=== PATIENT | female | born 1980 | race Caucasian/White ===

== ENCOUNTER 2025-01-09 01:14 | Inpatient (IN) | payer MEDICAID, SELFPAY ==
[2025-01-09] VITALS (15 sets, daily range): BP systolic 90–134; BP diastolic 42–90; PULSE 82–102; RESP 12–25; TEMP 36.3–37.2; O2SAT 4–96; BMI 39.6
--- NOTE | ~2025-01-09 | XR_ITS ---
EXAMINATION: XR ABDOMEN KUB CLINICAL INDICATION: constipation not relieved with bowel meds 4.5 days COMPARISON: CT from 01/09/2025 TECHNIQUE: AP view of the abdomen. FINDINGS: There is moderate small and large bowel gas. Metallic wires are visible in the left abdomen and also right of midline in the lower abdomen. XR/XR KUB IMPRESSION: There is a nonspecific bowel gas pattern with gas seen throughout small and large bowel. Electronically signed by: Arpan Mora MD 01/12/2025 11:55 AM EDT
--- NOTE | ~2025-01-09 | XR_ITS ---
CLINICAL HISTORY: ng tube placement 1 view chest x-ray Comparison: None provided Findings: Low lung volumes. Vascular crowding and subsegmental atelectasis. No consolidation or effusion. Heart size is normal. No acute fracture. IMPRESSION: Tip of NG tube in the body of stomach. This document has been electronically signed by: Helga Fox MD on 01/09/2025 04:06:10
--- NOTE | ~2025-01-09 | CT_ITS ---
CLINICAL HISTORY: abdominal pain CT ABDOMEN AND PELVIS WITH CONTRAST COMPARISON: None provided. FINDINGS: CTA chest will be reported separately. Examination is limited due to motion artifact. No evidence of a small-bowel obstruction or free air. A large amount of colonic stool is noted. There is tortuosity/redundancy involving portions of the colon. A portion of the distal transverse colon appears mildly thick-walled, for example seen on coronal image 52 and axial image 252. This might be due to underdistention. Appendix is not visualized. Postsurgical changes are noted in the abdomen. Small hiatal hernia is noted. Stomach is significantly underdistended which precludes accurate assessment. Fatty liver is noted. No focal liver lesion. Liver is enlarged and measures 20.8 cm on coronal image 67. There is mild prominence of the intrahepatic bile ducts without focal lesion. No visible gallstone. No pericholecystic inflammation. Common bile duct is dilated measuring 7-8 mm in caliber on coronal image 62. Pancreas is unremarkable. No CT evidence of acute pancreatitis. Spleen and adrenal glands are unremarkable. Bilateral renal cysts are noted. There also subcentimeter low-attenuation lesions in the left kidney which are too small to characterize. No hydronephrosis or obstructing stone. Urinary bladder is underdistended. There is a small amount of pelvic free fluid. No loculated fluid collection. Calcific plaque is noted in the abdominal aorta. No evidence of an abdominal aortic aneurysm or dissection. No lymphadenopathy. No evidence of a bowel containing hernia. Bone windows demonstrate no acute abnormalities. IMPRESSION: 1. No evidence of a bowel obstruction or free air. A large amount of colonic stool is noted. 2. A portion of the distal transverse colon appears mildly thick-walled. This might be due to underdistention. 3. Small hiatal hernia. 4. Fatty and enlarged liver. 5. Common bile duct is dilated measuring 7-8 mm in caliber. There is mild prominence of the intrahepatic bile ducts. No visible gallstone, within the limits of a CT scan. Correlation with liver function tests is advised. Follow-up nonurgent MRCP correlation can be considered. 6. Small amount of pelvic free fluid. No loculated fluid collection. 7. Additional findings are detailed above. This document has been electronically signed by: Adrien Shields M.D. on 01/09/2025 04:52:05
--- NOTE | ~2025-01-09 | CT_ITS ---
CLINICAL HISTORY: sob CTA CHEST WITH CONTRAST AND 3D POST PROCESSING COMPARISON: None provided. FINDINGS: Sagittal and coronal MIP 3D reconstruction images were performed. CT abdomen/pelvis will be reported separately. Exam is significantly limited due to motion/streak artifact. No definitive evidence of a pulmonary embolism. Cardiomegaly is present. Thoracic aorta is partially obscured by motion/streak artifact but is normal in caliber without evidence of an aneurysm. No definite dissection. Small hiatal hernia is noted. No evidence of a pneumothorax or pneumomediastinum. Multifocal atelectasis is noted in the bilateral lower lungs. There is mild right upper lobe atelectasis. No consolidation. No pleural effusion. No lymphadenopathy. 6-7 mm right thyroid lobe nodule is suspected on axial image 13. Bone windows demonstrate no acute abnormalities. IMPRESSION: 1. Limited exam. No definitive evidence of a pulmonary embolism. No evidence of a thoracic aortic aneurysm. No definite dissection. 2. Cardiomegaly. 3. Small hiatal hernia. 4. Multifocal atelectatic changes are noted. 5. Additional findings are detailed above. This document has been electronically signed by: Adrien Shields M.D. on 01/09/2025 05:00:59
--- NOTE | ~2025-01-09 | US_ITS ---
CLINICAL HISTORY: Rule out gallstones common bile duct evaluation US abdomen limited with color Doppler Comparison: CT/SR - CT ABDOMEN PELVIS W IV CON - 01/09/25 02:49 EDT Findings: Borderline gallbladder hydrops. Layering gallstones. No gallbladder wall thickening. No pericholecystic fluid. Positive sonographic Sheriff's sign. Common bile duct 6 mm. Impression: 1. Borderline gallbladder hydrops. Layering gallstones. Positive sonographic sheriff's sign. 2. Common bile duct upper limits of normal in diameter. This document has been electronically signed by: Ming Curry MD on 01/10/2025 18:11:22
[2025-01-09 01:42] LABS: MANUAL DIFF FLAG NO
[2025-01-09 01:43] LABS: Hematocrit 46.5 % (37.0-47.0); Hemoglobin 15.6 g/dl (12.0-16.0); Imm Gran Abs Auto 0.13 X10*3/uL (0.00-0.03); Imm Gran Pct Auto 1.0 % (0.0-0.4); Lymphocytes Absolute Auto 3.9 X10*3/uL (1.2-4.9); Mean Corpuscular HGB Conc 33.5 g/dl (31.0-35.0); Mean Corpuscular Hemoglobin 28.2 pg (27.0-33.0); Mean Corpuscular Volume 83.9 fL (80.0-98.0); NRBC Abs Auto 0.000 X10*3/uL (0.0-0.012); NRBC Pct Auto 0.0 /100WBC (0.0-0.2); Platelet Count 338 X10*3/uL (160-400); Red Blood Count 5.54 X10*6/uL (4.20-5.50); White Blood Count 13.3 X10*3/uL (4.8-10.8)
--- NOTE | 2025-01-09 02:09 | ED_ITS ---
[facility] - General Adult General Chief complaint: Abdominal Pain Stated complaint: LOWER ABDOMINAL PAIN Time Seen by Provider: 01/09/25 02:09 Source: patient Mode of arrival: ambulatory Limitations: no limitations History of Present Illness ED Provider: Dr. Forrester [facility] narrative: 44-year-old female history of opioid use disorder on methadone presented hospital today for nausea vomiting for the past 3 days. Patient is complaining of diffuse abdominal pain as well. Patient has been taking laxative without any alleviation of her constipation. History is limited as the patient appears to be acutely ill and pale and diaphoretic. Related Data Allergies Allergy/AdvReac Type Severity Reaction Status Date / Time No Known Allergies Allergy Verified 01/09/25 01:35 Review of Systems 2 Review of Systems: Pertinent review of systems as mentioned in HPI. All other system otherwise negative. [facility] Past Medical History [facility] Narrative: Medical history as mentioned in HPI Social History Social History Smoked in Last 30 Days: Yes Use of substances other than those prescribed or required for medical reasons: No Advance Directives: No Advance Directives Information Provided: Yes Do you have a plan to hurt others: No Plan Physical Exam ED Exam Exam: General: Pale diaphoretic, appears to be nauseous Head: Normacephalic, atraumatic ENT: oral mucosa moist, neck supple, no tracheal deviation Cardiovascular: Tachycardic rate, regular rhythm, no murmurs, rubbing, gallops Respiratory: CTAB, no wheeze, rales, rhonchi Gastrointestinal: Diffuse abdominal tenderness and distention appreciated on exam Neurological: Awake and alert, no facial droop noted Skin: Warm and dry Psychiatric: Appropriate mood and thoughts Vital Signs: Vital Signs - 24 hr 01/09/25 01:31 01/09/25 02:30 01/09/25 03:22 Temperature 98.4 F 97.5 F Pulse Rate 88 102 H 98 Respiratory Rate 20 25 H 13 Blood Pressure 102/57 L 90/42 L 134/63 Pulse Oximetry 94 92 95 Oxygen Delivery Method Nasal Cannula Nasal Cannula Nasal Cannula Oxygen Flow Rate 4 4 01/09/25 03:51 01/09/25 04:15 01/09/25 04:49 Temperature 97.4 F 97.5 F 97.7 F Pulse Rate 100 95 94 Respiratory Rate 14 16 16 Blood Pressure 110/49 L 107/52 L 103/61 Pulse Oximetry 94 96 96 Oxygen Delivery Method Nasal Cannula Nasal Cannula Nasal Cannula Oxygen Flow Rate 4 4 4 BMI result Body Mass Index 39.6 Medications Administered Discontinued Medications Generic Name Dose Route Start Last Admin Trade Name Freq PRN Reason Stop Dose Admin Sodium Chloride 1,000 mls @ 999 mls/hr 01/09/25 02:15 01/09/25 04:13 Ns IV 01/09/25 03:15 Infused .Q1H1M VALERIY Infusion Piperacillin Sod/Tazobactam 100 mls @ 200 mls/hr 01/09/25 02:41 01/09/25 04:13 Sod 4.5 gm/ Sodium Chloride IV 01/09/25 03:10 Infused ONCE ONE Infusion Sodium Chloride 1,000 mls @ 999 mls/hr 01/09/25 04:15 01/09/25 04:13 Ns IV 01/09/25 05:15 Infused .Q1H1M VALERIY Infusion Lactated Ringer's 1,000 mls @ 999 mls/hr 01/09/25 04:30 01/09/25 05:27 Lr IV 01/09/25 05:30 Infused .Q1H1M VALERIY Infusion Iohexol 85 ml 01/09/25 03:54 01/09/25 03:55 Iohexol 350 Mg/Ml 100 Ml Infus..Btl IV 01/09/25 03:55 85 ml ONCE ONE Administration Ketorolac Tromethamine 15 mg 01/09/25 04:51 01/09/25 05:08 Ketorolac Tromethamine 15 Mg/Ml Vial IVPUSH 01/09/25 04:52 15 mg ONCE ONE Administration Ondansetron HCl 4 mg 01/09/25 01:43 01/09/25 01:52 Ondansetron Hcl 4 Mg/2 Ml Vial IVPUSH 01/09/25 01:44 4 mg ONCE ONE Administration Ondansetron HCl 4 mg 01/09/25 02:12 01/09/25 02:27 Ondansetron Hcl 4 Mg/2 Ml Vial IVPUSH 01/09/25 02:13 4 mg ONCE ONE Administration Medical Decision Making Medical Decision Making MDM Narrative: This is a 44-year-old female presented hospital today for evaluation of nausea vomiting diarrhea and diffuse abdominal pain. Tylenol workup performed has leukocytosis 13.3. Elevated lactic acid at 3.9. Indicated severe dehydration. However due to leukocytosis and elevated lactic acid. Sepsis was called for the patient. IV Zosyn was started. Blood culture obtained as well. Patient has received a total was a 3 L IV fluid. Repeat lactic acid is 3.4. Blood pressure has improved at this time. Initial blood pressure was in the 80 systolic. She was hypotensive due to severe dehydration. CTA of the chest shows cardiomegaly, no PE, small hiatal hernia. Patient's CT abdomen and pelvis did not show any signs of bowel obstruction, there is a large amount of colonic stool. Patient also has enlarged CBD. Patient appears to be much more comfortable on reassessment. Her color has returned. Blood pressure remained stable at this time. We will plan to admit the patient to the hospital for further management of her dehydration. And possible evaluation of her enlarged CBD. Differential Diagnosis Differential Diagnoses: The differential diagnosis associated with the presentation includes Cholecystitis, small-bowel obstruction, constipation, perforated bowel Consult Healthcare Provider Management of the patient was discussed with: Hospitalist Lab Data MDM Lab Attestation statement: I reviewed the patient's lab results. 01/09/25 01:35 01/09/25 01:35 Labs: Lab Results 01/09/25 01/09/25 01/09/25 Range/Units 01:35 02:46 05:08 WBC 13.3 H (4.8-10.8) X10*3/uL RBC 5.54 H (4.20-5.50) X10*6/uL Hgb 15.6 (12.0-16.0) g/dl Hct 46.5 (37.0-47.0) % MCV 83.9 (80.0-98.0) fL MCH 28.2 (27.0-33.0) pg MCHC 33.5 (31.0-35.0) g/dl RDW 13.0 (11.0-16.0) % Plt Count 338 (160-400) X10*3/uL MPV 9.7 (9.4-12.3) fL Immature Gran % (Auto) 1.0 H (0.0-0.4) % Neut % (Auto) 67.2 (45-73) % Lymph % (Auto) 29.0 (20-40) % [place] % (Auto) 1.7 L (2-11) % Eos % (Auto) 0.9 (0-4) % Baso % (Auto) 0.2 (0-2) % Lymph # (Auto) 3.9 (1.2-4.9) X10*3/uL [place] # (Auto) 0.2 (0.1-1.2) X10*3/uL Eos # (Auto) 0.1 (0.0-0.4) X10*3/uL Baso # (Auto) 0.0 (0.0-0.2) X10*3/uL Abs Immat Gran (auto) 0.13 H (0.00-0.03) X10*3/uL Absolute Neuts (auto) 9.0 H (2.0-8.3) x10*3/uL Absolute Nucleated RBC 0.000 (0.0-0.012) X10*3/uL Nucleated RBC % (auto) 0.0 (0.0-0.2) /100WBC Sodium 141 (135-145) mmol/L Potassium 3.8 (3.3-5.1) mmol/L Chloride 105 (96-108) mmol/L Carbon Dioxide 22 (22-29) mmol/L Anion Gap 18 (12-20) BUN 16 (9-16) mg/dL Creatinine 1.12 (0.5-1.4) mg/dL Estim Creat Clear Calc 76.7 Estimated GFR 52 Random Glucose 198 H (60-115) mg/dL Lactic Acid 3.9 H* (0.5-2.0) mmol/L Lactic Acid F/U @ 2Hr 3.4 H* (0.5-2.0) mmol/L Calcium 10.8 H (8.4-10.2) mg/dL Total Bilirubin 0.3 (0.0-1.0) mg/dL AST 31 (5-31) U/L ALT 50 H (0-31) U/L Alkaline Phosphatase 142 H (39-117) U/L Total Protein 7.5 (6.5-8.0) g/dL Albumin 4.6 (3.5-5.0) g/dL Lipase 197 H (8-78) U/L Independent Interpretation I performed an independent interpretation of an: CT Scan Radiology Impression Discussion of test interpretation with radiology: I have reviewed the radiologist's reading. Chronic Conditions Opioid dependence Critical Care Time Critical Care Time Critical Care Time: Yes Total Critical Care Time: 50 Attestation: Time is exclusive of separately billable procedures. Time includes: direct patient care, patient reassessment, coordination of patient care, interpretation of data (laboratory data, pulse oximetry, arterial blood gases and chest xrays), review of patient's medical records, medical consultation and documentation of patient care. Procedures excluded from critical care time: central intravenous line placement and electrocardiography. Discharge Plan Discharge Clinical Impression: Dehydration, severe, Constipation, Common bile duct dilatation Patient Disposition: Admitted As Inpatient Print Language: Turkish
[2025-01-09 02:12] LABS: Alanine Aminotransferase 50 U/L (0-31); Albumin Level 4.6 g/dL (3.5-5.0); Alkaline Phosphatase 142 U/L (39-117); Anion Gap 18 (12-20); Aspartate Amino Transferase 31 U/L (5-31); Blood Urea Nitrogen 16 mg/dL (9-16); Calcium 10.8 mg/dL (8.4-10.2); Carbon Dioxide 22 mmol/L (22-29); Chloride 105 mmol/L (96-108); Creatinine Clr Calc Pharmacy 76.7; Estimated Glomerular Filt Rate 52; Lipase 197 U/L (8-78); Potassium 3.8 mmol/L (3.3-5.1); Sodium 141 mmol/L (135-145); Total Protein 7.5 g/dL (6.5-8.0)
[2025-01-09] MEDS: iohexoL 350 MG/ML 100 ML INFUS..BTL 85 ML IV (03:55)
--- NOTE | 2025-01-09 04:11 | PC.NURSE ---
NG tube placed and confirmed, Medicted per mar, second line placed by ultra sound,
[2025-01-09] MEDS: Lactated Ringers 1,000 ML 999 ML IV (04:23)
[2025-01-09 04:54] LABS: Reflex Lactate? Lactic Acid Added
--- NOTE | 2025-01-09 04:58 | MHC.EDTECH ---
patient belongings completed. patient noted to have large sum of money in which she agreed to have locked up in the safe with security. $[id number] in plata verified with security and patient , all forms signed with security and money brought to safe and locked up. Form with all information and retrieval information in patients chart located behind the medical secretary.
[2025-01-09 05:33] LABS: ~Lactic Acid-LAB USE ONLY 3.4 mmol/L (0.5-2.0)
--- NOTE | 2025-01-09 05:36 | PC.NURSE ---
pt repeat lactic still remain elevated, Dr. rich aware.
--- NOTE | 2025-01-09 05:42 | P.HPHOSP_ITS ---
History of Present Illness Date of Service: 01/09/25 Attending physician on admission: Arti Mathew Chief Complaint: Vomiting Kamini Ash is a 44 years old woman with a past medical history significant for opiates use disorder on methadone, essential hypertension, depression and obesity presents to the emergency department complaining of nausea and vomiting that started tonight associated with left lower quadrant and constipation over the last 4 days. She to 6 laxative at home without results. She denied chest pain, cough or shortness on breath. She reported chills but no fever. She denied pain with urination but has been urinating less frequently. Abdominal surgical history significant for hysterectomy with bilateral salpingo- oophorectomy due to abnormal vaginal bleeding. Smoke tobacco 1 pack per day, denies alcohol abuse or current illicit drug use. She has been clean for 3 years. In the ED, in the ED, she was found to have soft blood pressure of 90/42. Last BP is 120/62. She was having mild degree of tachycardia and tachypnea. Her oxygen saturation is normal. She was placed on supplemental oxygen via nasal cannula and currently on 4 L/min. Blood workup showed leukocytosis of 13.3. Hemoglobin is 15.6 and platelets. There are no electrolyte imbalances. Glucose 196. There is lactic acidosis of 3.9 then 3.4. ALT and alk-phos are elevated; but normal bilirubin and AST. Lipase 197. Abdominal pelvis CT scan showed no evidence of bowel obstruction or free air but a large amount of colonic stool was noted. Common bile duct was found to be dilated measuring 7-8 mm in caliber, mild prominence of intrahepatic bilaterally ducts without visible gallstone. Chest CTA showed no definitive evidence of pulmonary embolism. Itchy did showed cardiomegaly, small hiatal hernia, multifocal atelectatic changes noted. In the ED, Zofran 8 mg IV total, Zosyn 4.5 g IV, morphine 4 mg IV, LR 2 L bolus, NS 1 L bolus 50 mg IV Review of Systems 2 Review of Systems: All 12 systems were reviewed and normal except as noted in HPI. PENDING SALE TO [facility] Medical History (Updated 01/09/25 @ 06:46 by Arti Mathew MD) Opioid use disorder Essential hypertension Obesity Social History Smoked in Last 30 Days: Yes Use of substances other than those prescribed or required for medical reasons: No Advance Directives: No Advance Directives Information Provided: Yes Do you have a plan to hurt others: No Plan Meds Allergies Allergy/AdvReac Type Severity Reaction Status Date / Time No Known Allergies Allergy Verified 01/09/25 01:35 Physical Exam 2 Vital Signs and Narrative: Vital Signs: Last Vital Signs Temp 97.7 F 01/09/25 04:49 Pulse 94 01/09/25 04:49 Resp 16 01/09/25 04:49 BP 103/61 01/09/25 04:49 Pulse Ox 96 01/09/25 04:49 O2 Del Method Nasal Cannula 01/09/25 04:49 O2 Flow Rate 4 01/09/25 04:49 Oxygen Flow Rate 4 01/09/25 01:31 BMI result Body Mass Index 39.6 Constitutional - Awake and Alert, No apparent distress. Pleasant. Cooperative. Nasal cannula in place. HEENT - PER, EOMI. Dry oral mucosa. Heart - S1S2, RRR, no murmurs Lungs- Normal lung expansion, Normal respiratory effort, No respiratory distress. No tachypnea. Decreased breath sound at bases. No wheezing, rhonchi or crackles. Abdomen - nondistended, left lower quadrant tenderness to palpation without rebound or guarding. Increased bowel sounds. - negative CVA tenderness Extremities - no calf tenderness bilaterally, no swelling Musculoskeletal - Normal inspection, normal ROM Skin - Warm/Dry Neurological - Alert & oriented x3. Moving all extremities spontaneously. Psychological - Appropriate affect Results Labs 01/09/25 01:35 01/09/25 01:35 Labs: Laboratory Results - last 24 hr 01/09/25 01/09/25 01/09/25 01:35 02:46 05:08 MCV 83.9 MCH 28.2 MCHC 33.5 RDW 13.0 Plt Count 338 MPV 9.7 Immature Gran % (Auto) 1.0 H Neut % (Auto) 67.2 Lymph % (Auto) 29.0 [place] % (Auto) 1.7 L Eos % (Auto) 0.9 Baso % (Auto) 0.2 Lymph # (Auto) 3.9 [place] # (Auto) 0.2 Eos # (Auto) 0.1 Baso # (Auto) 0.0 Abs Immat Gran (auto) 0.13 H Absolute Neuts (auto) 9.0 H Absolute Nucleated RBC 0.000 Nucleated RBC % (auto) 0.0 Anion Gap 18 Estim Creat Clear Calc 76.7 Estimated GFR 52 Random Glucose 198 H Lactic Acid 3.9 H* Lactic Acid F/U @ 2Hr 3.4 H* Calcium 10.8 H Total Bilirubin 0.3 AST 31 ALT 50 H Alkaline Phosphatase 142 H Total Protein 7.5 Albumin 4.6 Lipase 197 H Assessment and Plan (1) Common bile duct dilatation: Status: Acute (2) Essential hypertension: Status: Inactive (3) Obesity: Qualifiers: Body mass index: BMI 39.0-39.9 Obesity classification: adult class 2 (BMI 35 - 39.9) Obesity type: due to excess calories Serious obesity comorbidity presence: without serious comorbidity Qualified Code(s): E66.812 - Obesity, class 2; E66.09 - Other obesity due to excess calories; Z68.39 - Body mass index [BMI] 39.0-39.9, adult Status: Inactive (4) Opioid use disorder: Status: Inactive (5) Constipation: Qualifiers: Constipation type: unspecified constipation type Qualified Code(s): K 59.00 - Constipation, unspecified Status: Acute (6) Nausea and vomiting: Qualifiers: Vomiting type: bilious vomiting Qualified Code(s): R11.14 - Bilious vomiting Status: Acute (7) Left lower quadrant pain: Status: Acute (8) Acute lactic acidosis: Status: Acute (9) Fatty liver: Status: Acute (10) Elevated LFTs: Status: Acute Plan Kamini Ash is a 44 y/o woman presents with: Abdominal pain > left lower quadrant, nausea and vomiting likely secondary to severe constipation. Took 6 laxatives at home without improvement. Fleet enemas now. Start therapy with MiraLax, Dulcolax, Senokot. Continue IV hydration. Antiemetic therapy and Toradol as needed. Protonix 40 mg IV daily. We will avoid narcotic. Check urinalysis. Elevated LFTs + common bile duct dilatation. No obstructive pattern. Likely secondary to fatty liver. We will obtain abdominal ultrasound to assess for cholelithiasis and/or cholecystitis. Continue to monitor LFTs. Elevated lipase. No consistent with pancreatitis. Abdomen CT scan showed no evidence of pancreatitis. Continue to monitor. Acute lactic acidosis, likely secondary to vomiting --> volume depletion. Continue IV fluids. Doubt sepsis. Continue to monitor. Essential hypertension. Hold lisinopril and clonidine due to soft blood pressure. Continue to monitor blood pressure. Mood disorder. Continue home medications. Opiate use disorder. Continue methadone. She takes 165 mg p.o. daily Tobacco dependence. Patient is refusing nicotine patch or gums. Tobacco cessation education. med rec pending Code status: Full DVT prophylaxis: Lovenox Patient will need hospitalization for at least 2 midnights for abdominal pain associated with nausea and vomiting causing dehydration; patient needs supportive therapy with IV fluids, antiemetic and pain meds. Quality Stroke Does the patient have a stroke diagnosis?: No VTE Prior VTE?: No VTE Risk Level:: Medical - moderate - high VTE Device Contraindication: Treatment Not Indicated VTE Drug Contraindication: N/A - Med Ordered
--- NOTE | 2025-01-09 06:21 | PC.NURSE ---
pt on for 4L nasal cannula, due to oxygen dropping down into the high 80's and low 90's
[2025-01-09] MEDS: Lactated Ringers 1,000 ML 125 ML IVCONT (06:35)
[2025-01-09 06:37] LABS: MANUAL DIFF FLAG NO
[2025-01-09] MEDS: 0.9 % Sodium Chloride Flush 3 ML SYRINGE IVFLUSH ×3 (06:56→20:09)
[2025-01-09 07:00] LABS: Hematocrit 44.1 % (37.0-47.0); Hemoglobin 14.0 g/dl (12.0-16.0); Imm Gran Abs Auto 0.13 X10*3/uL (0.00-0.03); Imm Gran Pct Auto 0.8 % (0.0-0.4); Lymphocytes Absolute Auto 0.9 X10*3/uL (1.2-4.9); Mean Corpuscular HGB Conc 31.7 g/dl (31.0-35.0); Mean Corpuscular Hemoglobin 27.5 pg (27.0-33.0); Mean Corpuscular Volume 86.5 fL (80.0-98.0); NRBC Abs Auto 0.000 X10*3/uL (0.0-0.012); NRBC Pct Auto 0.0 /100WBC (0.0-0.2); Platelet Count 254 X10*3/uL (160-400); Red Blood Count 5.10 X10*6/uL (4.20-5.50); White Blood Count 16.9 X10*3/uL (4.8-10.8)
[2025-01-09 07:11] LABS: Reflex Lactate? 2 Y
[2025-01-09 07:13] LABS: Appearance Urine Clear; Glucose Urine UA Negative (Negative); PH 5.0 (5.0-9.0); Specific Gravity - Urine >= 1.030 (1.005-1.025); UMIC TRIGGER UACC YES
--- NOTE | 2025-01-09 07:35 | HO.PM.IMPN ---
Subjective Subjective Date of Service: 01/09/25 Interval History: Pt had minimal respose to BM and 1 time enema Will give enema X1 more Pt likely has Opioid-Induced Constipation (OIC) given imaging and admission Last BM X 4 days prior to admission minimally tender abd, no obstruction or ileus Physical Exam Exam: Exam: General: AOx3, no acute distress Resp: CTA bilaterally CVS: S1, S2, RRR GI: Minimally diffusely tender abdomen, Neuro: Cranial nerves II-XII grossly intact bilaterally. Motor grossly intact bilaterally Extremities: No edema Psych: nervous and anxious - likley from methadone/opioid withdrawal Vital Signs: Vital Signs: Last Vital Signs Temp 97.7 F 01/09/25 06:03 Pulse 95 01/09/25 06:03 Resp 12 01/09/25 06:03 BP 120/66 01/09/25 06:03 Pulse Ox 93 01/09/25 06:23 O2 Del Method Nasal Cannula 01/09/25 06:23 O2 Flow Rate 4 01/09/25 06:23 Oxygen Flow Rate 4 01/09/25 01:31 BMI result Body Mass Index 39.6 Objective Data Active Medications Acetaminophen (Acetaminophen 325 Mg Tablet) 650 mg PO Q6H PRN PRN Reason: Pain, Mild 1-3,fever,headache Calcium Carbonate (Calcium Carbonate 750 Mg Tab.Chew) 750 mg PO Q4H PRN PRN Reason: Heartburn Enoxaparin Sodium (Enoxaparin Sodium 40 Mg/0.4 Ml Syringe) 40 mg SUBCUT Q24H [facility] Lactated Ringer's (Lr) 1,000 mls @ 125 mls/hr IVCONT .Q8H [facility] Stop: 01/09/25 14:14 Last Admin: 01/09/25 06:35 Dose: 125 mls/hr Documented By: ALEIDA Ketorolac Tromethamine (Ketorolac Tromethamine 15 Mg/Ml Vial) 15 mg IVPUSH Q6H PRN PRN Reason: Abdominal pain Magnesium Hydroxide (Milk Of Magnesia 30 Ml Oral.Susp) 30 ml PO DAILY PRN PRN Reason: Constipation Magnesium Hydroxide (Milk Of Magnesia 30 Ml Oral.Susp) 30 ml PO TID PRN PRN Reason: Constipation Melatonin (Melatonin 3 Mg Tablet) 6 mg PO BEDTIME PRN PRN Reason: Insomnia Pantoprazole Sodium (Pantoprazole Sodium 40 Mg/10 Ml Vial) 40 mg IVPUSH DAILY@0630 [facility] Last Admin: 01/09/25 06:56 Dose: 40 mg Documented By: PAMELA Polyethylene Glycol (Polyethylene Glycol 3350 17 Gm Powd.Pack) 17 gm PO DAILY [facility] Prochlorperazine Edisylate (Prochlorperazine Edisylate 10 Mg/2 Ml Vial) 5 mg IVPUSH Q6H PRN PRN Reason: Nausea and Vomiting Senna/Docusate Sodium (Sennosides/Docusate Sodium Tablet) 2 tab PO BEDTIME [facility] Sodium Chloride (0.9 % Sodium Chloride Flush 3 Ml Syringe) 3 ml IVFLUSH QSHIFT [facility] Last Admin: 01/09/25 06:56 Dose: 3 ml Documented By: PAMELA Labs 01/09/25 06:29 01/09/25 01:35 Labs: Laboratory Results - last 24 hr 01/09/25 01/09/25 01/09/25 01:35 02:46 05:08 MCV 83.9 MCH 28.2 MCHC 33.5 RDW 13.0 Plt Count 338 MPV 9.7 Immature Gran % (Auto) 1.0 H Neut % (Auto) 67.2 Lymph % (Auto) 29.0 [place] % (Auto) 1.7 L Eos % (Auto) 0.9 Baso % (Auto) 0.2 Lymph # (Auto) 3.9 [place] # (Auto) 0.2 Eos # (Auto) 0.1 Baso # (Auto) 0.0 Abs Immat Gran (auto) 0.13 H Absolute Neuts (auto) 9.0 H Absolute Nucleated RBC 0.000 Nucleated RBC % (auto) 0.0 Anion Gap 18 Estim Creat Clear Calc 76.7 Estimated GFR 52 Random Glucose 198 H Lactic Acid 3.9 H* Lactic Acid F/U @ 2Hr 3.4 H* Calcium 10.8 H Total Bilirubin 0.3 AST 31 ALT 50 H Alkaline Phosphatase 142 H Total Protein 7.5 Albumin 4.6 Lipase 197 H Urine Color Urine Appearance Urine pH Ur Specific [place] Urine Protein Urine Glucose (UA) Urine Ketones Urine Blood Urine Nitrite Ur Leukocyte Esterase Urine RBC Urine WBC Ur Squamous Epith Cells Urine Bacteria Hyaline Casts 01/09/25 01/09/25 06:29 07:06 MCV 86.5 MCH 27.5 MCHC 31.7 RDW 13.2 Plt Count 254 MPV 10.2 Immature Gran % (Auto) 0.8 H Neut % (Auto) 84.5 H Lymph % (Auto) 5.4 L [place] % (Auto) 8.5 Eos % (Auto) 0.1 Baso % (Auto) 0.7 Lymph # (Auto) 0.9 L [place] # (Auto) 1.4 H Eos # (Auto) 0.0 Baso # (Auto) 0.1 Abs Immat Gran (auto) 0.13 H Absolute Neuts (auto) 14.3 H Absolute Nucleated RBC 0.000 Nucleated RBC % (auto) 0.0 Anion Gap Estim Creat Clear Calc Estimated GFR Random Glucose Lactic Acid Lactic Acid F/U @ 2Hr Calcium Total Bilirubin AST ALT Alkaline Phosphatase Total Protein Albumin Lipase Urine Color Dark Yellow Urine Appearance Clear Urine pH 5.0 Ur Specific [place] >= 1.030 H Urine Protein Negative Urine Glucose (UA) Negative Urine Ketones Negative Urine Blood Negative Urine Nitrite Negative Ur Leukocyte Esterase Trace H Urine RBC 0-2 Urine WBC 0-5 Ur Squamous Epith Cells 0-2 Urine Bacteria None Seen Hyaline Casts 0-2 Assessment and Plan (1) Constipation: Status: Acute Plan Pt is a 44 years old woman with a past medical history significant for opiates use disorder on methadone, essential hypertension, depression and obesity who presented to the ED with 4 day duration of N/V and abd pain. Kamini Ash is a 44 y/o woman presents with: Opioid-Induced Bowel Dysfunction (OIBD) - acute constipation Will likely need slow, but gradually higher doses of bowel meds and prn enemas as it appears that it was likely OIBD Mild but response to bowel meds. -ve workup for sepsis and SBO or ileus. Hence will avoid narcotics VALERIO on Methadone Addiction med consult Cont home methadone Elevated LFTs + common bile duct dilatation. Elevated lipase No obstructive pattern. Likely secondary to fatty liver. We will obtain abdominal ultrasound to assess for cholelithiasis and/or cholecystitis. Continue to monitor LFTs. F/up OP setting for resolution Acute lactic acidosis, likely secondary to vomiting --> volume depletion. Continue IV fluids. Doubt sepsis. Continue to monitor. Essential hypertension. Hold lisinopril and clonidine due to soft blood pressure. Continue to monitor blood pressure. Mood disorder. Continue home medications. Tobacco dependence. Patient is refusing nicotine patch or gums. Tobacco cessation education. Code status: Full DVT prophylaxis: Lovenox Patient will continue to need hospitalization for relief of presenting symptoms as she is yet to respond to mx and at risk of severe GI dysfunction and possible sepsis and . if she clincally responds, can DC in 1-2 days This note is constructed using voice recognition software. While every effort has been made to ensure accuracy, counselor manager errors may have been included. Quality Stroke Does the patient have a stroke diagnosis?: No VTE Prior VTE?: No VTE Risk Level:: Medical - moderate - high VTE Device Contraindication: Treatment Not Indicated VTE Drug Contraindication: N/A - Med Ordered
[2025-01-09 07:59] LABS: ~Lactic Acid-LAB USE ONLY 2.6 mmol/L (0.5-2.0)
--- NOTE | 2025-01-09 08:29 | PHA.MEDREC ---
Pharmacy Consult ? Medication Reconciliation Pharmacy has completed the medication reconciliation. Spoke with pt to confirm meds, she was a good historian, she knew her medications, doses, and frequency. Pt is no longer taking buproprion or prazosin. She takes trazodone 1 to 1.5 tabs at bedtime prn for sleep.
--- NOTE | 2025-01-09 12:18 | HE.PHANOTE ---
Addendum entered by Chantal Healy [facility] 01/09/25 13:07: WANDY SAYS LAST DOSE IS ACTUALLY 01/08 AND 12/19 IS AN ERROR Original Note: methadone confirmation form patient takes 170mg from [facility]. Got 27 take home from clinic on 12/19. last dose on 12/19
[2025-01-09] MEDS: methADONE HCl 20 MG/2 ML ORAL.CONC 170 MG PO (13:15)
[2025-01-09] MEDS: Milk of Magnesia 30 ML ORAL.SUSP PO (14:43)
[2025-01-10 03:38] VITALS: BP 107/61; PULSE 85; RESP 18; TEMP 36.2
[2025-01-10 06:55] LABS: Alanine Aminotransferase 32 U/L (0-31); Albumin Level 3.7 g/dL (3.5-5.0); Alkaline Phosphatase 87 U/L (39-117); Anion Gap 10 (12-20); Aspartate Amino Transferase 21 U/L (5-31); Blood Urea Nitrogen 16 mg/dL (9-16); Carbon Dioxide 26 mmol/L (22-29); Chloride 108 mmol/L (96-108); Creatinine Clr Calc Pharmacy 117.6; Estimated Glomerular Filt Rate > 60; Lipase 19 U/L (8-78); Potassium 3.8 mmol/L (3.3-5.1); Sodium 140 mmol/L (135-145); Total Protein 6.1 g/dL (6.5-8.0)
[2025-01-10 07:18] LABS: Calcium 8.5 mg/dL (8.4-10.2)
--- NOTE | 2025-01-10 07:25 | HO.PM.IMPN ---
Subjective Subjective Date of Service: 01/10/25 Interval History: 1 bm s/p enema with mild symptomatic rx Will continue rx with BM and enema to achieve resolution of symptoms non toxic or tender abdomen noted Review of Systems Review of Systems: Yes all other systems are reviewed and are negative Physical Exam Exam: Exam: General: AOx3, no acute distress Resp: CTA bilaterally CVS: S1, S2, RRR GI: Minimally diffusely tender abdomen, Neuro: Cranial nerves II-XII grossly intact bilaterally. Motor grossly intact bilaterally Extremities: No edema Psych: nervous and anxious - likley from methadone/opioid withdrawal Vital Signs: Vital Signs: Last Vital Signs Temp 97.2 F 01/10/25 03:38 Pulse 85 01/10/25 03:38 Resp 18 01/10/25 03:38 BP 107/61 01/10/25 03:38 Pulse Ox 95 01/09/25 20:00 O2 Del Method Nasal Cannula 01/09/25 20:00 O2 Flow Rate 2 01/09/25 15:59 Oxygen Flow Rate 4 01/09/25 01:31 BMI result Body Mass Index 39.6 Objective Data Active Medications Acetaminophen (Acetaminophen 325 Mg Tablet) 650 mg PO Q6H PRN PRN Reason: Pain, Mild 1-3,fever,headache Calcium Carbonate (Calcium Carbonate 750 Mg Tab.Chew) 750 mg PO Q4H PRN PRN Reason: Heartburn Chlorpromazine HCl (Chlorpromazine Hcl 100 Mg Tablet) 100 mg PO BEDTIME [facility] Last Admin: 01/09/25 20:12 Dose: 100 mg Documented By: FERNANDA Clonidine HCl (Clonidine Hcl 0.2 Mg Tablet) 0.2 mg PO TID [facility]; Protocol Last Admin: 01/09/25 20:13 Dose: 0.2 mg Documented By: FERNANDA Enoxaparin Sodium (Enoxaparin Sodium 40 Mg/0.4 Ml Syringe) 40 mg SUBCUT Q24H [facility] Last Admin: 01/09/25 08:51 Dose: 40 mg Documented By: RENNY Gabapentin (Gabapentin 400 Mg Capsule) 800 mg PO TID [facility] Last Admin: 01/09/25 20:12 Dose: 800 mg Documented By: FERNANDA Hydroxyzine HCl (Hydroxyzine Hcl 25 Mg Tablet) 25 mg PO TID [facility] Last Admin: 01/09/25 20:12 Dose: 25 mg Documented By: FERNANDA Lisinopril (Lisinopril 20 Mg Tablet) 20 mg PO DAILY [facility]; Protocol Magnesium Hydroxide (Milk Of Magnesia 30 Ml Oral.Susp) 30 ml PO DAILY PRN PRN Reason: Constipation Last Admin: 01/09/25 14:43 Dose: 30 ml Documented By: RENNY Magnesium Hydroxide (Milk Of Magnesia 30 Ml Oral.Susp) 30 ml PO TID PRN PRN Reason: Constipation Melatonin (Melatonin 3 Mg Tablet) 6 mg PO BEDTIME PRN PRN Reason: Insomnia Methadone HCl (Methadone Hcl 20 Mg/2 Ml Oral.Conc) 170 mg PO DAILY [facility] Last Admin: 01/09/25 13:15 Dose: 170 mg Documented By: RENNY Co-signed By: SHANICE Multivitamins/Vitamin C (Multivitamin Tablet) 1 tab PO DAILY [facility] Omeprazole (Omeprazole 20 Mg Capsule.Dr) 20 mg PO BEDTIME [facility] Last Admin: 01/09/25 20:13 Dose: 20 mg Documented By: FERNANDA Pantoprazole Sodium (Pantoprazole Sodium 40 Mg/10 Ml Vial) 40 mg IVPUSH DAILY@0630 [facility] Last Admin: 01/10/25 06:29 Dose: 40 mg Documented By: FERNANDA Polyethylene Glycol (Polyethylene Glycol 3350 17 Gm Powd.Pack) 17 gm PO DAILY [facility] Last Admin: 01/09/25 08:51 Dose: 17 gm Documented By: RENNY Prochlorperazine Edisylate (Prochlorperazine Edisylate 10 Mg/2 Ml Vial) 5 mg IVPUSH Q6H PRN PRN Reason: Nausea and Vomiting Quetiapine Fumarate (Quetiapine Fumarate 100 Mg Tablet) 100 mg PO QID PRN PRN Reason: Anxiety Last Admin: 01/09/25 14:43 Dose: 100 mg Documented By: RENNY Senna/Docusate Sodium (Sennosides/Docusate Sodium Tablet) 2 tab PO BEDTIME [facility] Last Admin: 01/09/25 20:12 Dose: 2 tab Documented By: FERNANDA Sodium Chloride (0.9 % Sodium Chloride Flush 3 Ml Syringe) 3 ml IVFLUSH QSHIFT [facility] Last Admin: 01/09/25 20:09 Dose: 3 ml Documented By: FERNANDA Trazodone HCl (Trazodone Hcl 100 Mg Tablet) 100 mg PO BEDTIME PRN PRN Reason: Sleep Vitamin D (Cholecalciferol (Vitamin D3) 25 Mcg Tablet) 50 mcg PO DAILY [facility] Labs 01/09/25 06:29 01/10/25 06:09 Labs: Laboratory Results - last 24 hr 01/09/25 01/10/25 07:38 06:09 Anion Gap 10 L Estim Creat Clear Calc 117.6 Estimated GFR > 60 Random Glucose 105 Lactic Acid F/U @ 4Hr 2.6 H* Calcium 8.5 D Total Bilirubin 0.5 AST 21 ALT 32 H Alkaline Phosphatase 87 Total Protein 6.1 L Albumin 3.7 Lipase 19 Microbiology Microbiology Results: Microbiology 01/09/25 02:53 Blood Culture - Preliminary Blood - Venous No growth after 24 hours. 01/09/25 02:46 Blood Culture - Preliminary Blood - Venous No growth after 24 hours. Assessment and Plan (1) Constipation: Status: Acute Plan Pt is a 44 years old woman with a past medical history significant for opiates use disorder on methadone, essential hypertension, depression and obesity who presented to the ED with 4 day duration of N/V and abd pain. Kamini Ash is a 44 y/o woman presents with Abd pain , N/V 2/2 Opioid-Induced Bowel Dysfunction (OIBD) 2/2 Methadone - acute constipation Pt likely has hard formed stool, hence will likely need more rx with BM and enemas with careful titration to prevent Bowel perforation. Pt will need chronic home bowel meds to prevent such events in the future Will likely need slow, but gradually higher doses of bowel meds and prn enemas as it appears that it was likely OIBD Mild but response to bowel meds -tap water enemas prn to achieve resolution -ve workup for sepsis and SBO or ileus, no acute abdomen noted Hence will avoid narcotics VALERIO on Methadone Addiction med consult Cont home methadone Elevated LFTs + common bile duct dilatation. Elevated lipase No obstructive pattern. Likely secondary to fatty liver. Usg Liver - awaiting read Continue to monitor LFTs. F/up OP setting for resolution Acute lactic acidosis, likely secondary to vomiting --> volume depletion. Continue IV fluids. Doubt sepsis. Continue to monitor. Essential hypertension. resume lisinopril and clonidine Mood disorder. Continue home medications. Tobacco dependence. Patient is refusing nicotine patch or gums. Tobacco cessation education. Code status: Full DVT prophylaxis: Lovenox Patient will continue to need hospitalization for relief of presenting symptoms as she is yet to respond to mx and at risk of severe GI dysfunction/ bowel perforation and possible sepsis and . if she clincally responds, can DC in 1-2 days This note is constructed using voice recognition software. While every effort has been made to ensure accuracy, body and fender worker errors may have been included. Quality Stroke Does the patient have a stroke diagnosis?: No VTE Prior VTE?: No VTE Risk Level:: Medical - moderate - high VTE Device Contraindication: Treatment Not Indicated VTE Drug Contraindication: N/A - Med Ordered
[2025-01-10 07:33] VITALS: BP 175/84; PULSE 50; RESP 16; TEMP 36.7; O2SAT 95
[2025-01-10] MEDS: methADONE HCl 20 MG/2 ML ORAL.CONC 170 MG PO (08:00)
[2025-01-10] MEDS: 0.9 % Sodium Chloride Flush 3 ML SYRINGE IVFLUSH ×3 (08:05→21:30)
[2025-01-10] MEDS: Milk of Magnesia 30 ML ORAL.SUSP PO ×2 (14:44→21:25)
[2025-01-10 15:19] VITALS: BP 116/53; PULSE 83; RESP 18; TEMP 36.7; O2SAT 93
[2025-01-10 19:53] VITALS: BP 112/60; PULSE 89; RESP 18; TEMP 36.2; O2SAT 93
[2025-01-10 21:25] VITALS: BP 126/65
[2025-01-11 03:19] VITALS: BP 115/67; PULSE 78; RESP 18; TEMP 36.2; O2SAT 93
--- NOTE | 2025-01-11 06:57 | HO.PM.IMPN ---
Subjective Subjective Date of Service: 01/11/25 Interval History: We will need glycerin suppositories and enemas no response to aggressive enemas Review of Systems Review of Systems: Yes all other systems are reviewed and are negative Physical Exam Exam: Exam: General: AOx3, no acute distress Resp: CTA bilaterally CVS: S1, S2, RRR GI: Minimally diffusely tender abdomen, Neuro: Cranial nerves II-XII grossly intact bilaterally. Motor grossly intact bilaterally Extremities: No edema Psych: nervous and anxious Vital Signs: Vital Signs: Last Vital Signs Temp 97.2 F 01/11/25 03:19 Pulse 78 01/11/25 03:19 Resp 18 01/11/25 03:19 BP 115/67 01/11/25 03:19 Pulse Ox 93 01/11/25 03:19 O2 Del Method Room Air 01/11/25 03:19 O2 Flow Rate 2 01/09/25 15:59 Oxygen Flow Rate 4 01/09/25 01:31 BMI result Body Mass Index 39.6 Objective Data Active Medications Acetaminophen (Acetaminophen 325 Mg Tablet) 650 mg PO Q6H PRN PRN Reason: Pain, Mild 1-3,fever,headache Calcium Carbonate (Calcium Carbonate 750 Mg Tab.Chew) 750 mg PO Q4H PRN PRN Reason: Heartburn Chlorpromazine HCl (Chlorpromazine Hcl 100 Mg Tablet) 100 mg PO BEDTIME [facility] Last Admin: 01/10/25 21:29 Dose: 100 mg Documented By: FERNANDA Clonidine HCl (Clonidine Hcl 0.2 Mg Tablet) 0.2 mg PO TID [facility]; Protocol Last Admin: 01/10/25 21:25 Dose: 0.2 mg Documented By: FERNANDA Docusate Sodium (Docusate Sodium 100 Mg Capsule) 100 mg PO BID [facility] Last Admin: 01/10/25 21:25 Dose: 100 mg Documented By: FERNANDA Enoxaparin Sodium (Enoxaparin Sodium 40 Mg/0.4 Ml Syringe) 40 mg SUBCUT Q24H [facility] Last Admin: 01/10/25 08:00 Dose: 40 mg Documented By: JANIS Gabapentin (Gabapentin 400 Mg Capsule) 800 mg PO TID [facility] Last Admin: 01/10/25 21:29 Dose: 800 mg Documented By: FERNANDA Hydroxyzine HCl (Hydroxyzine Hcl 25 Mg Tablet) 25 mg PO TID [facility] Last Admin: 01/10/25 21:29 Dose: 25 mg Documented By: FERNANDA Lisinopril (Lisinopril 20 Mg Tablet) 20 mg PO DAILY [facility]; Protocol Last Admin: 01/10/25 07:59 Dose: 20 mg Documented By: JANIS Magnesium Hydroxide (Milk Of Magnesia 30 Ml Oral.Susp) 30 ml PO DAILY PRN PRN Reason: Constipation Last Admin: 01/09/25 14:43 Dose: 30 ml Documented By: RENNY Magnesium Hydroxide (Milk Of Magnesia 30 Ml Oral.Susp) 30 ml PO TID [facility] Last Admin: 01/10/25 21:25 Dose: 30 ml Documented By: FERNANDA Melatonin (Melatonin 3 Mg Tablet) 6 mg PO BEDTIME PRN PRN Reason: Insomnia Methadone HCl (Methadone Hcl 20 Mg/2 Ml Oral.Conc) 170 mg PO DAILY [facility] Last Admin: 01/10/25 08:00 Dose: 170 mg Documented By: JANIS Co-signed By: ERI Multivitamins/Vitamin C (Multivitamin Tablet) 1 tab PO DAILY [facility] Last Admin: 01/10/25 07:59 Dose: 1 tab Documented By: JANIS Omeprazole (Omeprazole 20 Mg Capsule.Dr) 20 mg PO BEDTIME [facility] Last Admin: 01/10/25 21:29 Dose: 20 mg Documented By: FERNANDA Pantoprazole Sodium (Pantoprazole Sodium 40 Mg/10 Ml Vial) 40 mg IVPUSH DAILY@0630 [facility] Last Admin: 01/11/25 06:15 Dose: 40 mg Documented By: FERNANDA Polyethylene Glycol (Polyethylene Glycol 3350 17 Gm Powd.Pack) 17 gm PO BID [facility] Last Admin: 01/10/25 21:24 Dose: 17 gm Documented By: FERNANDA Quetiapine Fumarate (Quetiapine Fumarate 100 Mg Tablet) 100 mg PO QID PRN PRN Reason: Anxiety Last Admin: 01/10/25 21:29 Dose: 100 mg Documented By: FERNANDA Senna/Docusate Sodium (Sennosides/Docusate Sodium Tablet) 2 tab PO BID [facility] Last Admin: 01/10/25 21:25 Dose: 2 tab Documented By: FERNANDA Sodium Chloride (0.9 % Sodium Chloride Flush 3 Ml Syringe) 3 ml IVFLUSH QSHIFT [facility] Last Admin: 01/10/25 21:30 Dose: 3 ml Documented By: FERNANDA Trazodone HCl (Trazodone Hcl 100 Mg Tablet) 100 mg PO BEDTIME PRN PRN Reason: Sleep Vitamin D (Cholecalciferol (Vitamin D3) 25 Mcg Tablet) 50 mcg PO DAILY [facility] Last Admin: 01/10/25 08:00 Dose: 50 mcg Documented By: JANIS Labs 01/09/25 06:29 01/10/25 06:09 Labs: Laboratory Results - last 24 hr 01/10/25 06:09 Calcium 8.5 D Microbiology Microbiology Results: Microbiology 01/09/25 02:53 Blood Culture - Preliminary Blood - Venous No growth after 48 hours. 01/09/25 02:46 Blood Culture - Preliminary Blood - Venous No growth after 48 hours. Assessment and Plan (1) Constipation: Status: Acute Plan Pt is a 44 years old woman with a past medical history significant for opiates use disorder on methadone, essential hypertension, depression and obesity who presented to the ED with 4 day duration of N/V and abd pain. She is being admitted for methadone induced constipation with poor response with OIBD Abd pain , N/V 2/2 Opioid-Induced Bowel Dysfunction (OIBD) 2/2 Methadone - acute constipation poor response to bowel meds and enemas. -ve workup for sepsis and SBO or ileus, no acute abdomen noted , Hence will avoid narcotics Pt likely has hard formed stool, hence will likely need more rx with BM and enemas with careful titration to prevent Bowel perforation. She has not responded to nearly 4 days of bowel meds and enemas now we will try glycerin suppositories as well however if she does not respond we will likely need to contact for disimpaction by surgical management. VALERIO on Methadone Addiction med consult Cont home methadone Elevated LFTs + common bile duct dilatation. Elevated lipase No obstructive pattern. Likely secondary to fatty liver. Usg Liver - awaiting read Continue to monitor LFTs. F/up OP setting for resolution Acute lactic acidosis, likely secondary to vomiting --> volume depletion. Continue IV fluids. Doubt sepsis. Continue to monitor. Essential hypertension. resume lisinopril and clonidine Mood disorder. Continue home medications. Tobacco dependence. Patient is refusing nicotine patch or gums. Tobacco cessation education. Code status: Full DVT prophylaxis: Lovenox Patient will continue to need hospitalization for relief of presenting symptoms as she is yet to respond to mx and at risk of severe GI dysfunction/ bowel perforation and possible sepsis and . if she clincally responds, can DC in 1-2 days This note is constructed using voice recognition software. While every effort has been made to ensure accuracy, db2 dba errors may have been included. Quality Stroke Does the patient have a stroke diagnosis?: No VTE Prior VTE?: No VTE Risk Level:: Medical - moderate - high VTE Device Contraindication: Treatment Not Indicated VTE Drug Contraindication: N/A - Med Ordered
[2025-01-11] MEDS: Milk of Magnesia 30 ML ORAL.SUSP PO ×3 (07:52→20:54)
[2025-01-11 07:54] VITALS: BP 139/75; PULSE 85; RESP 16; TEMP 36.1; O2SAT 94
[2025-01-11] MEDS: methADONE HCl 20 MG/2 ML ORAL.CONC 170 MG PO (07:54)
[2025-01-11] MEDS: 0.9 % Sodium Chloride Flush 3 ML SYRINGE IVFLUSH ×3 (08:00→20:59)
--- NOTE | 2025-01-11 10:10 | MHC.CM.PN ---
PT LIVES ALONE AND IS INDEPENDENT SHE IS ACTIVE WITH [facility] IN [place] WHERE SHE PICKS UP HER MEDS MONTHLY PCP: MATT CELIS DCP: HOME [facility]IA [facility]
[2025-01-11 16:00] VITALS: BP 134/74; PULSE 78; RESP 16; TEMP 36.1; O2SAT 93
[2025-01-11 19:36] VITALS: BP 148/74; PULSE 82; RESP 18; TEMP 36.8; O2SAT 92
[2025-01-12 03:22] VITALS: BP 137/87; PULSE 76; RESP 18; TEMP 36.2; O2SAT 94
--- NOTE | 2025-01-12 07:22 | P.PNIM_ITS ---
Subjective Subjective Date of Service: 01/12/25 Physical Exam 2 Vital Signs: Vital Signs: Last Vital Signs Temp 97.1 F 01/12/25 03:22 Pulse 76 01/12/25 03:22 Resp 18 01/12/25 03:22 BP 137/87 01/12/25 03:22 Pulse Ox 94 01/12/25 03:22 O2 Del Method Room Air 01/12/25 03:22 O2 Flow Rate 2 01/09/25 15:59 Oxygen Flow Rate 4 01/09/25 01:31 BMI result Body Mass Index 39.6 Objective Data Active Medications Acetaminophen (Acetaminophen 325 Mg Tablet) 650 mg PO Q6H PRN PRN Reason: Pain, Mild 1-3,fever,headache Calcium Carbonate (Calcium Carbonate 750 Mg Tab.Chew) 750 mg PO Q4H PRN PRN Reason: Heartburn Chlorpromazine HCl (Chlorpromazine Hcl 100 Mg Tablet) 100 mg PO BEDTIME [facility] Last Admin: 01/11/25 20:58 Dose: 100 mg Documented By: FERNANDA Clonidine HCl (Clonidine Hcl 0.2 Mg Tablet) 0.2 mg PO TID [facility]; Protocol Last Admin: 01/11/25 20:57 Dose: 0.2 mg Documented By: FERNANDA Docusate Sodium (Docusate Sodium 100 Mg Capsule) 100 mg PO BID [facility] Last Admin: 01/11/25 20:58 Dose: 100 mg Documented By: FERNANDA Enoxaparin Sodium (Enoxaparin Sodium 40 Mg/0.4 Ml Syringe) 40 mg SUBCUT Q24H [facility] Last Admin: 01/11/25 07:52 Dose: 40 mg Documented By: JANIS Gabapentin (Gabapentin 400 Mg Capsule) 800 mg PO TID [facility] Last Admin: 01/11/25 20:58 Dose: 800 mg Documented By: FERNANDA Glycerin (Glycerin Adult Supp.Rect) 1 supp UT BEDTIME [facility] Last Admin: 01/11/25 20:59 Dose: 1 supp Documented By: FERNANDA Hydroxyzine HCl (Hydroxyzine Hcl 25 Mg Tablet) 25 mg PO TID [facility] Last Admin: 01/11/25 20:58 Dose: 25 mg Documented By: FERNANDA Lisinopril (Lisinopril 20 Mg Tablet) 20 mg PO DAILY [facility]; Protocol Last Admin: 01/11/25 07:53 Dose: 20 mg Documented By: JANIS Magnesium Hydroxide (Milk Of Magnesia 30 Ml Oral.Susp) 30 ml PO DAILY PRN PRN Reason: Constipation Last Admin: 01/09/25 14:43 Dose: 30 ml Documented By: RENNY Magnesium Hydroxide (Milk Of Magnesia 30 Ml Oral.Susp) 30 ml PO TID [facility] Last Admin: 01/11/25 20:54 Dose: 30 ml Documented By: FERNANDA Melatonin (Melatonin 3 Mg Tablet) 6 mg PO BEDTIME PRN PRN Reason: Insomnia Methadone HCl (Methadone Hcl 20 Mg/2 Ml Oral.Conc) 170 mg PO DAILY [facility] Last Admin: 01/11/25 07:54 Dose: 170 mg Documented By: JANIS Co-signed By: DELLA Multivitamins/Vitamin C (Multivitamin Tablet) 1 tab PO DAILY [facility] Last Admin: 01/11/25 07:53 Dose: 1 tab Documented By: JANIS Omeprazole (Omeprazole 20 Mg Capsule.Dr) 20 mg PO BEDTIME [facility] Last Admin: 01/11/25 20:58 Dose: 20 mg Documented By: FERNANDA Pantoprazole Sodium (Pantoprazole Sodium 40 Mg/10 Ml Vial) 40 mg IVPUSH DAILY@0630 [facility] Last Admin: 01/12/25 06:23 Dose: 40 mg Documented By: FERNANDA Polyethylene Glycol (Polyethylene Glycol 3350 17 Gm Powd.Pack) 17 gm PO BID [facility] Last Admin: 01/11/25 20:55 Dose: 17 gm Documented By: FERNANDA Quetiapine Fumarate (Quetiapine Fumarate 100 Mg Tablet) 100 mg PO QID PRN PRN Reason: Anxiety Last Admin: 01/11/25 21:02 Dose: 100 mg Documented By: FERNANDA Senna/Docusate Sodium (Sennosides/Docusate Sodium Tablet) 2 tab PO BID [facility] Last Admin: 01/11/25 20:57 Dose: 2 tab Documented By: FERNANDA Sodium Chloride (0.9 % Sodium Chloride Flush 3 Ml Syringe) 3 ml IVFLUSH QSHIFT [facility] Last Admin: 01/11/25 20:59 Dose: 3 ml Documented By: FERNANDA Trazodone HCl (Trazodone Hcl 100 Mg Tablet) 100 mg PO BEDTIME PRN PRN Reason: Sleep Vitamin D (Cholecalciferol (Vitamin D3) 25 Mcg Tablet) 50 mcg PO DAILY [facility] Last Admin: 01/11/25 07:53 Dose: 50 mcg Documented By: JANIS Labs 01/09/25 06:29 01/10/25 06:09 Microbiology Microbiology Results: Microbiology 01/09/25 02:53 Blood Culture - Preliminary Blood - Venous No growth after 48 hours. 01/09/25 02:46 Blood Culture - Preliminary Blood - Venous No growth after 48 hours. Quality Stroke Does the patient have a stroke diagnosis?: No VTE Prior VTE?: No VTE Risk Level:: Medical - moderate - high VTE Device Contraindication: Treatment Not Indicated VTE Drug Contraindication: N/A - Med Ordered
[2025-01-12 08:00] VITALS: BP 154/74; PULSE 87; RESP 18; TEMP 36.7; O2SAT 96
[2025-01-12] MEDS: Milk of Magnesia 30 ML ORAL.SUSP PO (08:16)
[2025-01-12] MEDS: methADONE HCl 20 MG/2 ML ORAL.CONC 170 MG PO (08:18)
--- NOTE | 2025-01-12 12:52 | P.DS_ITS ---
DS: Providers Provider Date of Service: 01/12/25 Date of admission: 01/09/25 05:41 Date of discharge: 01/12/25 Primary care physician: Shanice Jacinto NP DS: Diagnosis Discharge Diagnosis (1) Constipation: Status: Acute DS: Summary Hospital Course Hospital Course: Abd pain , N/V 2/2 Opioid-Induced Bowel Dysfunction (OIBD) 2/2 Methadone - acute constipation slow but definitive response to bowel meds and enemas. Pt is a 44 years old woman with a past medical history significant for opiates use disorder on methadone, essential hypertension, depression and obesity who presented to the ED with 4 day duration of N/V and abd pain. She is being admitted for methadone induced constipation with slow response response to OIBD. -ve workup for sepsis and SBO or ileus, no acute abdomen noted , narcotics were avoided. She was treated for 5 days with multiple medications and at discharge, she is being trialed on senna, Colace, MiraLax, lactulose, MOM, Dulcolax all p.o. b.i.d. Patient needs screening colonoscopy as she is 44 years old and due for 1.- advised the patient to follow up with her primary care doctor who can send in a referral. VALERIO on Methadone Addiction med consult Cont home methadone Elevated LFTs + common bile duct dilatation. Elevated lipase No obstructive pattern. Likely secondary to fatty liver. Usg Liver - awaiting read Continue to monitor LFTs. F/up OP setting for resolution Acute lactic acidosis, likely secondary to vomiting --> volume depletion. Continue IV fluids. Doubt sepsis. Continue to monitor. Essential hypertension. resume lisinopril and clonidine Mood disorder. Continue home medications. Tobacco dependence. Patient is refusing nicotine patch or gums. Tobacco cessation education. Code status: Full DVT prophylaxis: Lovenox At the time of discharge, patient's abdomen was benign, has passed a large bowel movement overnight per staff as well. Patient agreeable to follow-up with PCP and is aware that she needs to follow-up with GI for colonoscopy This note is constructed using voice recognition software. While every effort has been made to ensure accuracy, journal box inspector errors may have been included. Time spent discussing smoking cessation with patient: more than 10 minutes Time Attestation Discharge Coordination Time (in mins): 35 Quality: Safe Use of Opioids Does Pt have an Active Cancer Diagnosis on the Problem List?: No Quality: Stroke Does the patient have a stroke diagnosis?: No Physical Exam Vital Signs: Vital Signs: Last Vital Signs Temp 98.0 F 01/12/25 08:00 Pulse 87 01/12/25 08:00 Resp 18 01/12/25 08:00 BP 154/74 H 01/12/25 08:00 Pulse Ox 96 01/12/25 08:00 O2 Del Method Room Air 01/12/25 08:00 O2 Flow Rate 2 01/09/25 15:59 Oxygen Flow Rate 4 01/09/25 01:31 BMI result Body Mass Index 39.6 DS: Data Data Completed and Pending Labs on day of discharge: Preliminary micro results at discharge 01/09/25 02:53 Blood Culture - Preliminary Blood - Venous No growth after 48 hours. 01/09/25 02:46 Blood Culture - Preliminary Blood - Venous No growth after 48 hours. Discharge Plan Discharge Anticipated Discharge Date/Time: 01/12/25 13:24 Patient Disposition: Home, Self-Care Discharge Diagnosis: Severe methadone induced constipation, slow response Referrals: [facility] [Other] - 1 Week Shanice Jacinto NP [Primary Care Provider, Internal Medicine] - 1 Week Discharge Medications: New polyethylene glycol 3350 17 gram Powder In Packet 17 g PO BID 30 Days Qty: 60 0RF sennosides-docusate sodium [Senna Plus] 8.6-50 mg Tablet 2 tab PO BID 30 Days Qty: 120 3RF magnesium hydroxide [Milk of Magnesia] 400 mg/5 mL Suspension 30 ml PO TID 30 Days Qty: 2700 3RF docusate sodium 100 mg Capsule 100 mg PO BID 30 Days Qty: 60 3RF glycerin (adult) Suppository 1 supp NM BID 30 Days Qty: 60 3RF lactulose [Constulose] 10 gram/15 mL solution 20 g PO TID Qty: 3785 0RF Continued chlorpromazine 100 mg tablet 100 mg PO BEDTIME lisinopril 20 mg tablet 20 mg PO DAILY quetiapine 100 mg tablet 100 mg PO QID PRN (Reason: Anxiety) clonidine HCl 0.2 mg tablet 0.2 mg PO TID gabapentin 800 mg tablet 800 mg PO TID trazodone 100 mg tablet 100 - 150 mg PO BEDTIME PRN (Reason: Sleep) omeprazole 20 mg capsule,delayed release(DR/EC) 20 mg PO BEDTIME vitamin B complex Tablet 1 tab PO DAILY hydroxyzine pamoate 25 mg capsule 25 mg PO TID cholecalciferol (vitamin D3) 50 mcg (2,000 unit) tablet 50 mcg PO DAILY methadone 10 mg/5 mL Solution 170 mg PO DAILY Discharge Orders: Discharge Order (Routine); Ordered 01/12/25 Ordered By: Donna Anderson Diet: Low salt diet Activity on Discharge: As tolerated Stand Alone Forms: Patient Portal Discharge page Print Language: Uzbek Care Plan Goals: Constipation prophylaxis-advised the patient to take medications as instructed about PCP follow-up within a week GI follow-up within a week for workup She is due for a colonoscopy as she is 44-advised her to follow-up with PCP and a GI referral through PCP For medication management, she is on docusate 100 mg p.o. b.i.d., glycerin suppository per rectum b.i.d., MiraLax 17 g daily p.o. b.i.d., senna 2 tabs p.o. b.i.d., milk of Mag 30 mL p.o. b.i.d., lactulose 20 mg p.o. t.i.d.. Health Concerns: Constipation Plan of Treatment: See above Assessment: See above
--- NOTE | 2025-01-12 12:56 | MHC.CM.PN ---
pt being dcd home [facility] at 2;30
--- NOTE | 2025-01-12 13:32 | MHC.CM.PN ---
pt is being dcd today at 3:[address] to [facility] dejon bryson
--- NOTE | 2025-01-12 13:36 | PC.NURSE ---
Patient reports having large formed BM last night
== END 2025-01-12 14:28 | disposition home or self-care (01) | DRG 254 ==
LOC: HO.ED 05:41 → HO.EDOVER 05:54 → HO.S3 06:47
PROVIDERS: Admitting Provider Internal Medicine; Emergency Provider Student in an Organized Health Care Education/Training Program; PCP Nurse Practitioner Family; Visit Provider Student in an Organized Health Care Education/Training Program
DX: K59.03 Drug induced constipation (principal); E87.21 Acute metabolic acidosis; K76.0 Fatty (change of) liver, not elsewhere classified; F17.210 Nicotine dependence, cigarettes, uncomplicated; F39 Unspecified mood [affective] disorder; F11.20 Opioid dependence, uncomplicated; I10 Essential (primary) hypertension; T40.3X5A Adverse effect of methadone, initial encounter; Z71.6 Tobacco abuse counseling; E66.9 Obesity, unspecified; Z68.39 Body mass index [BMI] 39.0-39.9, adult; E86.0 Dehydration; Z79.899 Other long term (current) drug therapy
CPT/HCPCS: 36415; 71045; 71275; 74018; 74177; 76705; 80053; 81001; 83605; 83690; 85025; 87040; 99285; J1650; J1885; J2270; J2405; J2470; J2543; J7120; Q9967

== ENCOUNTER → 2025-01-09 02:12 | Outpatient (BNV) | payer MEDICAID, SELFPAY | PROVIDERS: Emergency Provider Student in an Organized Health Care Education/Training Program; PCP Nurse Practitioner Family; Visit Provider Radiology Diagnostic Radiology | DX: R10.84 Generalized abdominal pain (principal) | CPT/HCPCS: 76705 ==

== ENCOUNTER 2025-01-09 05:41 | Outpatient (BNV) | payer MEDICAID, SELFPAY | END 2025-01-12 11:38 | PROVIDERS: Admitting Provider Internal Medicine; Emergency Provider Student in an Organized Health Care Education/Training Program; PCP Nurse Practitioner Family; Visit Provider Radiology Diagnostic Radiology | DX: K59.00 Constipation, unspecified (principal) | CPT/HCPCS: 74018 ==

== ENCOUNTER → 2025-01-09 05:41 | Outpatient (BNV) | payer MEDICAID, SELFPAY | PROVIDERS: Admitting Provider Internal Medicine; Emergency Provider Student in an Organized Health Care Education/Training Program; PCP Nurse Practitioner Family; Visit Provider Internal Medicine | DX: K59.00 Constipation, unspecified (principal) | CPT/HCPCS: 99223; 99232; 99239; 99499 ==